=== PATIENT | male | born 1945 | race Caucasian/White ===

== ENCOUNTER 2017-10-21 10:51 | Inpatient (IN) | payer OTHER ==
[2017-10-21 16:02] LABS: ADD MAN DIFF? NO
[2017-10-21 16:07] LABS: BASOPHILS % 0.6 % (0.0-2.0); EOSINOPHILS # 0.1 10^3/ul (0.0-0.5); HEMATOCRIT 46.7 % (42.0-52.0); HEMOGLOBIN 15.6 g/dl (14.0-18.0); LYMPHOCYTES # 1.2 10^3/ul (0.8-2.9); LYMPHOCYTES % 16.7 % (15.0-51.0); MEAN CORPUSCULAR HEMOGLOBIN 31.1 pg (29.0-33.0); MEAN CORPUSCULAR HGB CONC 33.4 g/dl (32.0-37.0); MEAN PLATELET VOLUME 11.7 fl (7.4-10.4); MONOCYTE # 0.5 10^3/ul (0.3-0.9); MONOCYTES % 6.3 % (0.0-11.0); NEUTROPHIL # 5.4 10^3/ul (1.6-7.5); NEUTROPHILS % 75.1 % (39.0-77.0); PLATELET COUNT 174 10^3/UL (140-415); RED BLOOD COUNT 5.02 10^6/ul (4.70-6.10)
[2017-10-21 16:07] LABS: WHITE BLOOD COUNT 7.2 10^3/ul (4.8-10.8)
[2017-10-21] MEDS: ASPIRIN 325 MG TAB PO (16:15)
[2017-10-21 16:21] LABS: D-DIMER 405.34 ng/ml (<460)
[2017-10-21 16:22] LABS: ANION GAP 17 (8-16); BLOOD UREA NITROGEN 13 mg/dl (7-20); CALCIUM 9.5 mg/dl (8.4-10.2); CARBON DIOXIDE 25 mmol/L (21-31); CHLORIDE 104 mmol/L (97-110); CREATININE 0.82 mg/dl (0.61-1.24); GLUCOSE 95 mg/dl (70-220); POTASSIUM 4.2 mmol/L (3.5-5.1); SODIUM 142 mmol/L (135-144)
[2017-10-21] MEDS ORDERED: ONDANSETRON 4 MG INJ IV ×2 (17:00→17:30)
[2017-10-21] MEDS ORDERED: ACETAMINOPHEN 325 MG TAB PO ×2 (17:00→17:30)
[2017-10-21] MEDS ORDERED: MAGNESIUM HYDROXIDE 30ML CUP PO (17:30)
[2017-10-21] MEDS ORDERED: NITROGLYCERIN (SL) 0.4 MG TAB SL (17:30)
[2017-10-21] MEDS ORDERED: DOCUSATE SODIUM 100 MG CAP PO (17:30)
[2017-10-21] MEDS ORDERED: BISACODYL 10 MG SUPP PR (17:30)
[2017-10-21] MEDS ORDERED: NACL 0.9% 3 ML SYG IV (17:30)
[2017-10-21] MEDS ORDERED: ZOLPIDEM 5 MG TAB PO (17:30)
[2017-10-21] MEDS ORDERED: VERAPAMIL 5 MG INJ (17:32)
[2017-10-21] MEDS ORDERED: SOD CHLORIDE 0.9% 500 ML (17:32)
[2017-10-21] MEDS ORDERED: LIDOCAINE 1% (MDV) 20 ML INJ (17:32)
[2017-10-21] MEDS ORDERED: IODIXANOL LOCM 100 ML BTL (17:32)
[2017-10-21] MEDS ORDERED: MIDAZOLAM 1 MG/ML 2 ML INJ (17:32)
[2017-10-21] MEDS ORDERED: FENTAnyl 50 MCG/ML VIAL (17:32)
[2017-10-21] MEDS ORDERED: NITROGLYCERIN (IC) 100 MCG/ML INJ (17:33)
[2017-10-21] MEDS ORDERED: IOHEXOL 350MG/ML 50 ML BTL (17:33)
[2017-10-21] MEDS ORDERED: HEPARIN 1000 UNITS/ML 10 ML INJ IV (19:00)
[2017-10-21] MEDS: SOD CHLORIDE 0.9% 1,000 ML IV (19:13)
[2017-10-21] MEDS: CEFAZOLIN 2 GM/50 ML (PMX) 50 ML IVPB (20:00)
[2017-10-21 20:13] LABS: ADD MAN DIFF? NO
[2017-10-21 20:23] LABS: WHITE BLOOD COUNT 8.6 10^3/ul (4.8-10.8)
[2017-10-21 20:23] LABS: BASOPHILS % 0.5 % (0.0-2.0); EOSINOPHILS # 0.1 10^3/ul (0.0-0.5); EOSINOPHILS % 1.3 % (0.0-7.0); HEMATOCRIT 41.2 % (42.0-52.0); LYMPHOCYTES # 1.6 10^3/ul (0.8-2.9); LYMPHOCYTES % 18.8 % (15.0-51.0); MEAN CORPUSCULAR HEMOGLOBIN 30.8 pg (29.0-33.0); MEAN CORPUSCULAR VOLUME 90.5 fl (82.0-101.0); MEAN PLATELET VOLUME 11.1 fl (7.4-10.4); MONOCYTE # 0.5 10^3/ul (0.3-0.9); MONOCYTES % 6.3 % (0.0-11.0); NEUTROPHIL # 6.3 10^3/ul (1.6-7.5); NEUTROPHILS % 72.9 % (39.0-77.0); PLATELET COUNT 197 10^3/UL (140-415); RED BLOOD COUNT 4.55 10^6/ul (4.70-6.10); RED CELL DISTRIBUTION WIDTH 12.4 % (11.5-14.5)
[2017-10-21 20:36] LABS: INR 1.16; PT RATIO 1.2
[2017-10-21 20:41] LABS: PARTIAL THROMBOPLASTIN TIME 71.7 Sec (25.0-35.0)
[2017-10-21] MEDS ORDERED: ATORVASTATIN 40 MG TAB PO (21:00)
[2017-10-21] MEDS: ATORVASTATIN 80 MG TAB PO (21:15)
[2017-10-21] MEDS: FAMOTIDINE 20 MG TAB PO (21:15)
[2017-10-21] MEDS: METOPROLOL 25 MG TAB PO (21:15)
[2017-10-21 21:17] LABS: CREATINE KINASE 133 IU/L (23-200)
[2017-10-21] MEDS: HEPARIN 25000 UNITS/250 ML 250 ML IV (21:27)
[2017-10-21 21:31] LABS: CK INDEX 1.9
[2017-10-21 21:33] LABS: CK-MB 2.59 ng/ml (0.0-2.4)
[2017-10-22 05:55] LABS: ADD MAN DIFF? NO
[2017-10-22 06:00] LABS: WHITE BLOOD COUNT 6.6 10^3/ul (4.8-10.8)
[2017-10-22 06:00] LABS: BASOPHIL # 0.1 10^3/ul (0.0-0.1); BASOPHILS % 0.8 % (0.0-2.0); EOSINOPHILS # 0.2 10^3/ul (0.0-0.5); EOSINOPHILS % 2.9 % (0.0-7.0); HEMATOCRIT 38.1 % (42.0-52.0); LYMPHOCYTES # 1.5 10^3/ul (0.8-2.9); LYMPHOCYTES % 22.7 % (15.0-51.0); MEAN CORPUSCULAR HEMOGLOBIN 31.3 pg (29.0-33.0); MEAN CORPUSCULAR HGB CONC 34.1 g/dl (32.0-37.0); MEAN CORPUSCULAR VOLUME 91.8 fl (82.0-101.0); MEAN PLATELET VOLUME 10.2 fl (7.4-10.4); MONOCYTE # 0.5 10^3/ul (0.3-0.9); MONOCYTES % 8.1 % (0.0-11.0); NEUTROPHIL # 4.3 10^3/ul (1.6-7.5); NEUTROPHILS % 65.3 % (39.0-77.0); PLATELET COUNT 199 10^3/UL (140-415); RED BLOOD COUNT 4.15 10^6/ul (4.70-6.10); RED CELL DISTRIBUTION WIDTH 12.9 % (11.5-14.5)
[2017-10-22 06:19] LABS: PARTIAL THROMBOPLASTIN TIME 64.9 Sec (25.0-35.0)
[2017-10-22 06:32] LABS: ALANINE AMINOTRANSFERASE 32 IU/L (13-69); ALBUMIN 3.3 g/dl (3.3-4.9); ALBUMIN/GLOBULIN RATIO 0.94; ALKALINE PHOSPHATASE 85 IU/L (42-121); ANION GAP 9 (8-16); ASPARTATE AMINO TRANSFERASE 29 IU/L (15-46); BILIRUBIN,INDIRECT 0.4 mg/dl (0-1.1); BILIRUBIN,TOTAL 0.4 mg/dl (0.2-1.3); BLOOD UREA NITROGEN 12 mg/dl (7-20); CALCIUM 8.8 mg/dl (8.4-10.2); CARBON DIOXIDE 27 mmol/L (21-31); CHLORIDE 107 mmol/L (97-110); CHOL/HDL RATIO 4.6 RATIO; CHOLESTEROL 169 mg/dl (100-200); CREATININE 0.85 mg/dl (0.61-1.24); GLUCOSE 95 mg/dl (70-220); HDL CHOLESTEROL 36 mg/dl (31-75); LDL CHOLESTEROL,CALCULATED 114 mg/dl; POTASSIUM 4.1 mmol/L (3.5-5.1); SODIUM 139 mmol/L (135-144); TOTAL PROTEIN 6.8 g/dl (6.1-8.1); TRIGLYCERIDES 94 mg/dl (0-149)
[2017-10-22] MEDS: METOPROLOL 25 MG TAB PO ×3 (08:13→19:47)
[2017-10-22] MEDS: FAMOTIDINE 20 MG TAB PO ×3 (08:13→19:47)
[2017-10-22] MEDS: ASPIRIN 81 MG TAB PO ×2 (08:13→11:01)
[2017-10-22] MEDS ORDERED: HEPARIN 1000 UNITS/ML 10 ML INJ IV (12:30)
[2017-10-22] MEDS: HEPARIN 25000 UNITS/250 ML 250 ML IV (12:51)
[2017-10-22 13:19] LABS: INR 1.05; PROTIME 13.8 Sec (11.9-14.9); PT RATIO 1.1
[2017-10-22 13:20] LABS: PARTIAL THROMBOPLASTIN TIME 50.8 Sec (25.0-35.0)
[2017-10-22 19:17] LABS: PARTIAL THROMBOPLASTIN TIME 72.5 Sec (25.0-35.0)
[2017-10-22] MEDS: ATORVASTATIN 80 MG TAB PO (19:47)
[2017-10-23 01:18] LABS: PARTIAL THROMBOPLASTIN TIME 55.7 Sec (25.0-35.0)
[2017-10-23] MEDS: ASPIRIN 81 MG TAB PO (08:03)
[2017-10-23] MEDS: METOPROLOL 25 MG TAB PO ×2 (08:03→20:42)
[2017-10-23] MEDS: FAMOTIDINE 20 MG TAB PO ×3 (08:05→20:43)
[2017-10-23] MEDS ORDERED: MIDAZOLAM 5 ML ×3 (10:51→16:22)
[2017-10-23] MEDS ORDERED: ROCURONIUM 50 MG INJ (10:54)
[2017-10-23] MEDS ORDERED: LIDOCAINE 100 MG SYRINGE ×2 (10:54→11:01)
[2017-10-23] MEDS ORDERED: THROMBIN 5000 UNIT VIAL (10:54)
[2017-10-23] MEDS ORDERED: PROPOFOL 20 ML (10:54)
[2017-10-23] MEDS ORDERED: CA CHLORIDE 10% 10 ML SYRINGE ×2 (10:54→11:08)
[2017-10-23] MEDS ORDERED: GELATIN SIZE 100 SPONGE (10:54)
[2017-10-23] MEDS ORDERED: NA BICARBONATE 8.4% 50 ML SYG ×2 (10:54→11:11)
[2017-10-23] MEDS ORDERED: HEPARIN 1000 UNITS/ML 10 ML INJ ×2 (10:55→11:08)
[2017-10-23] MEDS ORDERED: PROPOFOL 100 ML (10:55)
[2017-10-23] MEDS ORDERED: NITROGLYCERIN 50 MG/D5W (PMX) 250 ML (10:57)
[2017-10-23] MEDS ORDERED: POTASSIUM CHLORIDE 40 MEQ INJ (11:01)
[2017-10-23] MEDS ORDERED: MAGNESIUM SULFATE (MG) 50% 10 ML INJ (11:02)
[2017-10-23] MEDS ORDERED: ALBUMIN HUMAN 5% 500 ML (11:07)
[2017-10-23] MEDS ORDERED: MANNITOL 20% 250 ML IV (11:09)
[2017-10-23] MEDS ORDERED: PHENYLephrine 10 MG INJ ×4 (11:10→14:36)
[2017-10-23] MEDS: MILRINONE LACTATE 2 MG in SOD CHLORIDE 0.9% 50 ML IV (12:00)
[2017-10-23] MEDS ORDERED: NORepinephrine 8MG/250 ML (PMX 250 ML IV (12:00)
[2017-10-23] MEDS ORDERED: EPINEPHrine 4 MG in DEXTROSE 5% 246 ML IV (12:00)
[2017-10-23] MEDS: INSULIN HUMAN REGULAR 100 UNIT in SOD CHLORIDE 0.9% 99 ML IV ×2 (12:00→23:14)
[2017-10-23] MEDS ORDERED: PHENYLephrine 20MG IN 250 ML 250 ML IV (12:00)
[2017-10-23] MEDS: ASPIRIN 600 MG SUPP PR (12:00)
[2017-10-23] MEDS: HEPARIN (10000 UNITS/ML) 10,000 UNIT, MILRINONE LACTATE 10 MG in SOD CHLORIDE 0.9% 1,00... SC (12:00)
[2017-10-23] MEDS: TRANEXAMIC ACID IRR (12:30)
[2017-10-23] MEDS ORDERED: LIDOCAINE 2% (SDV) 5 ML INJ (12:38)
[2017-10-23] MEDS ORDERED: CEFAZOLIN 1 GM INJ (13:29)
[2017-10-23] MEDS: PAPAVERINE 60 MG INJ (13:30)
[2017-10-23] MEDS: HEPARIN 1000 UNITS/ML 10 ML INJ (13:30)
[2017-10-23] MEDS ORDERED: NEOSTIGMINE 3 MG/3 ML SYRINGE (14:42)
[2017-10-23 14:50] LABS: IMMEDIATE SPIN CROSSMATCH 1 2
[2017-10-23] MEDS: VANCOMYCIN 1 GM INJ (15:12)
[2017-10-23] MEDS ORDERED: FUROSEMIDE 20 MG INJ (15:20)
[2017-10-23] MEDS ORDERED: PROTAMINE 250 MG INJ ×2 (16:18→16:45)
[2017-10-23] MEDS ORDERED: morphine 10 MG INJ ×2 (16:24→17:10)
[2017-10-23] MEDS: ACCU-CHEK XX ×8 (17:00→23:58)
[2017-10-23] MEDS ORDERED: DOPamine-D5W 1.6 MG/ML 250 ML IV (17:00)
[2017-10-23] MEDS ORDERED: MAGNESIUM SULFATE 1 GM/D5W 100 ML IVPB (17:00)
[2017-10-23] MEDS ORDERED: DEXTROSE 50% 50 ML SYRINGE IV ×4 (17:00→19:00)
[2017-10-23] MEDS ORDERED: ACETAMINOPHEN 325 MG TAB PO (17:00)
[2017-10-23] MEDS ORDERED: ONDANSETRON 4 MG INJ IV (17:00)
[2017-10-23] MEDS: hydrALAzine 20 MG INJ IV (17:45)
[2017-10-23 17:54] LABS: ADD MAN DIFF? NO
[2017-10-23 18:13] LABS: INR 1.44; PROTIME 17.8 Sec (11.9-14.9); PT RATIO 1.4
[2017-10-23 18:27] LABS: ANION GAP 21 (8-16); BLOOD UREA NITROGEN 13 mg/dl (7-20); CALCIUM 11.4 mg/dl (8.4-10.2); CARBON DIOXIDE 24 mmol/L (21-31); CHLORIDE 104 mmol/L (97-110); CREATININE 0.85 mg/dl (0.61-1.24); GLUCOSE 136 mg/dl (70-220); POTASSIUM 3.9 mmol/L (3.5-5.1); SODIUM 145 mmol/L (135-144)
[2017-10-23] MEDS: POTASSIUM CHLORIDE 40 MEQ, CALCIUM CHLORIDE 10% 1 GM in DEXTROSE 5%-0.225% NACL 1,000 ML IV (18:32)
[2017-10-23] MEDS ORDERED: ACCU-CHEK XX (19:00)
[2017-10-23] MEDS ORDERED: INSULIN HUMAN REGULAR 100 UNIT in SOD CHLORIDE 0.9% 99 ML IV (19:00)
[2017-10-23 19:16] LABS: AADO2 Arterial 152.7 mmHg (7.0-24.0); Arterial Base Excess -3.4 mmol/L (-3.0-3); Arterial Blood Gas Oxygen Sat 98.3 mmHG (95.0-100.0); Arterial COHb 0.3 % (0.0-3.0); Arterial Fraction of Oxyhgb 97.6 % (93.0-99.0); Arterial HCO3 22.5 mmol/L (22.0-26.0); Arterial MetHb 0.4 % (0.0-1.5); Arterial Total Hemglobin 11.8 g/dl (12.0-18.0); Arterial pCO2 43.9 mmhg (35-45); MODE VENT - AC; Site A-Line
[2017-10-23 19:17] LABS: MODE VENT - AC; MetHgb Venous 0.6 %; Sample Type BLMV; Site VENOUS LINE; Venous COHb 0.3 %; Venous Fraction OxyHgb 86.6 %; Venous Oxygen Sat 87.4 mmHG (55.0-75.0); Venous Total Hemglobin 11.7 g/dl
[2017-10-23 19:23] LABS: WHITE BLOOD COUNT 14.8 10^3/ul (4.8-10.8)
[2017-10-23 19:23] LABS: HEMATOCRIT 30.6 % (42.0-52.0); HEMOGLOBIN 10.5 g/dl (14.0-18.0); MEAN CORPUSCULAR HEMOGLOBIN 31.6 pg (29.0-33.0); MEAN CORPUSCULAR HGB CONC 34.3 g/dl (32.0-37.0); MEAN CORPUSCULAR VOLUME 92.2 fl (82.0-101.0); MEAN PLATELET VOLUME 10.2 fl (7.4-10.4); PLATELET COUNT 130 10^3/UL (140-415); RED BLOOD COUNT 3.32 10^6/ul (4.70-6.10); RED CELL DISTRIBUTION WIDTH 12.6 % (11.5-14.5)
[2017-10-23] MEDS ORDERED: NITROPRUSSIDE 50 MG in DEXTROSE 5% 248 ML IV (19:30)
[2017-10-23] MEDS: NITROGLYCERIN 50 MG/D5W (PMX) 250 ML IV ×2 (19:44→22:47)
[2017-10-23] MEDS: POTASSIUM CHLORIDE 50 ML IVPB ×2 (19:52→20:46)
[2017-10-23 19:56] LABS: BAND NEUTROPHILS #M 1.1 10^3/ul (0.0-0.6); BAND NEUTROPHILS % (M) 8 % (0-4); LYMPHOCYTES # 0.6 10^3/ul (0.8-2.9); LYMPHOCYTES #M 0.5 10^3/ul (0.8-2.9); LYMPHOCYTES % (M) 4 % (15-51); MONOCYTE # 0.6 10^3/ul (0.3-0.9); MONOCYTE #M 0.5 10^3/ul (0.3-0.9); MONOCYTES % (M) 4 % (0-11); SEG NEUT #M 12.6 10^3/ul (1.7-7.5); SEGMENTED NEUTROPHILS (M) % 84 % (39-77)
[2017-10-23 19:57] LABS: ANISOCYTOSIS 1+ (0-0)
[2017-10-23 19:58] LABS: PLATELET ESTIMATE NORMAL
[2017-10-23] MEDS: HYDROmorphONE 0.5 MG/0.5 ML SYG IV ×2 (20:02→22:43)
[2017-10-23 20:06] LABS: PATH REVIEW? NO; POSITIVE DIFF NO
[2017-10-23] MEDS: FAMOTIDINE 20 MG INJ IV (20:41)
[2017-10-23] MEDS: ATORVASTATIN 80 MG TAB PO (20:42)
[2017-10-23 23:15] LABS: AADO2 Arterial 100.3 mmHg (7.0-24.0); Arterial Blood Gas Oxygen Sat 97.9 mmHG (95.0-100.0); Arterial COHb 0.3 % (0.0-3.0); Arterial Fraction of Oxyhgb 97.2 % (93.0-99.0); Arterial HCO3 24.4 mmol/L (22.0-26.0); Arterial MetHb 0.4 % (0.0-1.5); Arterial Total Hemglobin 11.4 g/dl (12.0-18.0); Arterial pCO2 43.3 mmhg (35-45); Blood Gas PS 8; MODE VENT - CPAP; Site A-Line
[2017-10-23] MEDS: CEFAZOLIN 1 GM/50 ML (PMX) 50 ML IVPB (23:54)
[2017-10-24] MEDS: ACCU-CHEK XX ×11 (01:00→11:02)
[2017-10-24] MEDS: HYDROmorphONE 0.5 MG/0.5 ML SYG IV (04:15)
[2017-10-24 05:16] LABS: AADO2 Arterial 24.9 mmHg (7.0-24.0); Arterial Base Excess -2.1 mmol/L (-3.0-3); Arterial Blood Gas Oxygen Sat 98.4 mmHG (95.0-100.0); Arterial COHb 0.1 % (0.0-3.0); Arterial Fraction of Oxyhgb 97.9 % (93.0-99.0); Arterial HCO3 23.4 mmol/L (22.0-26.0); Arterial MetHb 0.4 % (0.0-1.5); Arterial Total Hemglobin 12.2 g/dl (12.0-18.0); Arterial pCO2 42.7 mmhg (35-45); MODE NASAL CANNULA; Site A-Line
[2017-10-24 05:42] LABS: ADD MAN DIFF? NO
[2017-10-24 05:58] LABS: ABNORMAL IP MESSAGE 1; BASOPHILS % 0.1 % (0.0-2.0); HEMATOCRIT 31.2 % (42.0-52.0); HEMOGLOBIN 10.4 g/dl (14.0-18.0); LYMPHOCYTES # 0.6 10^3/ul (0.8-2.9); LYMPHOCYTES % 4.9 % (15.0-51.0); MEAN CORPUSCULAR HGB CONC 33.3 g/dl (32.0-37.0); MEAN CORPUSCULAR VOLUME 92.9 fl (82.0-101.0); MEAN PLATELET VOLUME 11.5 fl (7.4-10.4); MONOCYTE # 0.8 10^3/ul (0.3-0.9); MONOCYTES % 6.2 % (0.0-11.0); NEUTROPHIL # 11.1 10^3/ul (1.6-7.5); NEUTROPHILS % 88.6 % (39.0-77.0); POSITIVE DIFF @See below; RED BLOOD COUNT 3.36 10^6/ul (4.70-6.10); RED CELL DISTRIBUTION WIDTH 13.3 % (11.5-14.5)
[2017-10-24 05:58] LABS: WHITE BLOOD COUNT 12.6 10^3/ul (4.8-10.8)
[2017-10-24] MEDS ORDERED: CEFAZOLIN 1 GM/50 ML (PMX) 50 ML IVPB (06:00)
[2017-10-24 06:06] LABS: INR 1.26; PT RATIO 1.3
[2017-10-24 06:20] LABS: MAGNESIUM 2.4 mg/dl (1.7-2.5)
[2017-10-24 06:43] LABS: ALANINE AMINOTRANSFERASE 30 IU/L (13-69); ALBUMIN 4.4 g/dl (3.3-4.9); ALKALINE PHOSPHATASE 43 IU/L (42-121); ANION GAP 19 (8-16); ASPARTATE AMINO TRANSFERASE 48 IU/L (15-46); BILIRUBIN,INDIRECT 0.6 mg/dl (0-1.1); BILIRUBIN,TOTAL 0.6 mg/dl (0.2-1.3); BLOOD UREA NITROGEN 14 mg/dl (7-20); CALCIUM 10.1 mg/dl (8.4-10.2); CARBON DIOXIDE 23 mmol/L (21-31); CHLORIDE 107 mmol/L (97-110); CREATININE 0.84 mg/dl (0.61-1.24); GLUCOSE 110 mg/dl (70-220); POTASSIUM 4.7 mmol/L (3.5-5.1); SODIUM 144 mmol/L (135-144); TOTAL PROTEIN 6.4 g/dl (6.1-8.1)
[2017-10-24] MEDS: FAMOTIDINE 20 MG INJ IV (08:00)
[2017-10-24 08:42] LABS: PLATELET COUNT 72 10^3/UL (140-415)
[2017-10-24] MEDS: ASPIRIN 81 MG TAB PO ×2 (09:00→09:06)
[2017-10-24] MEDS: FAMOTIDINE 20 MG TAB PO ×3 (09:00→20:37)
[2017-10-24] MEDS: ENOXAPARIN 40 MG/0.4 ML SYG SC (09:04)
[2017-10-24] MEDS: OXYCODONE/ACETAMINOPHEN (5/325) TAB PO ×2 (09:05→22:54)
[2017-10-24] MEDS: METOPROLOL 25 MG TAB PO ×2 (09:05→20:37)
[2017-10-24 09:07] LABS: ANISOCYTOSIS 1+ (0-0); BAND NEUTROPHILS #M 1.5 10^3/ul (0.0-0.6); BAND NEUTROPHILS % (M) 12 % (0-4); GIANT THROMBO% (M) 1 % (0-0); LYMPHOCYTES #M 1.1 10^3/ul (0.8-2.9); LYMPHOCYTES % (M) 9 % (15-51); MICROCYTOSIS 1+ (0-0); MONOCYTE #M 0.1 10^3/ul (0.3-0.9); MONOCYTES % (M) 1 % (0-11); PLATELET ESTIMATE SIG DECREASED; POIKILOCYTOSIS 2+ (0-0); POLYCHROMASIA 3+ (0-0); REACTIVE LYMPHOCYTES #M 0.2 10^3/ul (0.0-0.0); REACTIVE LYMPHOCYTES% (M) 2 % (0-0); SEG NEUT #M 9.8 10^3/ul (1.7-7.5); SEGMENTED NEUTROPHILS (M) % 76 % (39-77); SMUDGE%M 3 % (0-0)
[2017-10-24] MEDS: CEFAZOLIN 1 GM/50 ML (PMX) 50 ML IVPB (09:09)
[2017-10-24] MEDS: POTASSIUM CHLORIDE 40 MEQ, CALCIUM CHLORIDE 10% 1 GM in DEXTROSE 5%-0.225% NACL 1,000 ML IV (10:05)
[2017-10-24] MEDS: morphine 2 MG INJ IV ×2 (10:35→20:10)
[2017-10-24] MEDS ORDERED: GLUCAGON 1 MG INJ IM (13:30)
[2017-10-24] MEDS ORDERED: DEXTROSE 50% 50 ML SYRINGE IV ×2 (13:30)
[2017-10-24] MEDS ORDERED: GLUCOSE GEL 15 GRAM TUBE BUCCAL (13:30)
[2017-10-24] MEDS ORDERED: GLUCOSE GEL 15 GRAM TUBE PO ×2 (13:30)
[2017-10-24] MEDS: INSULIN ASPART [NOVOLOG] 3 ML PEN SC ×2 (17:35→20:37)
[2017-10-24] MEDS: ALBUMIN HUMAN 5% 250 ML IV (17:56)
[2017-10-24] MEDS: ATORVASTATIN 80 MG TAB PO (20:37)
[2017-10-25] MEDS: ACCU-CHEK XX ×2 (01:31→23:28)
[2017-10-25] MEDS: morphine 2 MG INJ IV (01:59)
[2017-10-25] MEDS: POTASSIUM CHLORIDE 40 MEQ, CALCIUM CHLORIDE 10% 1 GM in DEXTROSE 5%-0.225% NACL 1,000 ML IV (03:15)
[2017-10-25 06:13] LABS: ADD MAN DIFF? NO
[2017-10-25 06:20] LABS: WHITE BLOOD COUNT 12.7 10^3/ul (4.8-10.8)
[2017-10-25 06:20] LABS: ABNORMAL IP MESSAGE 1; BASOPHILS % 0.2 % (0.0-2.0); EOSINOPHILS % 0.2 % (0.0-7.0); HEMATOCRIT 32.4 % (42.0-52.0); HEMOGLOBIN 10.9 g/dl (14.0-18.0); LYMPHOCYTES # 1.2 10^3/ul (0.8-2.9); LYMPHOCYTES % 9.1 % (15.0-51.0); MEAN CORPUSCULAR HEMOGLOBIN 31.7 pg (29.0-33.0); MEAN CORPUSCULAR HGB CONC 33.6 g/dl (32.0-37.0); MEAN CORPUSCULAR VOLUME 94.2 fl (82.0-101.0); MEAN PLATELET VOLUME 11.2 fl (7.4-10.4); MONOCYTES % 8.2 % (0.0-11.0); NEUTROPHIL # 10.4 10^3/ul (1.6-7.5); NEUTROPHILS % 82.1 % (39.0-77.0); NUCLEATED RED BLOOD CELLS% 0.2 /100WBC (0.0-0.0); PLATELET COUNT 78 10^3/UL (140-415); POSITIVE DIFF @See below; RED BLOOD COUNT 3.44 10^6/ul (4.70-6.10); RED CELL DISTRIBUTION WIDTH 13.3 % (11.5-14.5)
[2017-10-25 06:52] LABS: ALANINE AMINOTRANSFERASE 31 IU/L (13-69); ALBUMIN 3.9 g/dl (3.3-4.9); ALBUMIN/GLOBULIN RATIO 1.56; ALKALINE PHOSPHATASE 60 IU/L (42-121); ANION GAP 17 (8-16); ASPARTATE AMINO TRANSFERASE 42 IU/L (15-46); BILIRUBIN,INDIRECT 0.7 mg/dl (0-1.1); BILIRUBIN,TOTAL 0.7 mg/dl (0.2-1.3); BLOOD UREA NITROGEN 18 mg/dl (7-20); CALCIUM 9.7 mg/dl (8.4-10.2); CARBON DIOXIDE 25 mmol/L (21-31); CHLORIDE 104 mmol/L (97-110); CREATININE 0.82 mg/dl (0.61-1.24); GLUCOSE 102 mg/dl (70-220); POTASSIUM 4.6 mmol/L (3.5-5.1); SODIUM 141 mmol/L (135-144); TOTAL PROTEIN 6.4 g/dl (6.1-8.1)
[2017-10-25 06:53] LABS: PHOSPHORUS 2.9 mg/dl (2.5-4.9)
[2017-10-25] MEDS: INSULIN ASPART [NOVOLOG] 3 ML PEN SC ×4 (07:35→21:00)
[2017-10-25] MEDS: METOPROLOL 25 MG TAB PO ×2 (09:21→20:07)
[2017-10-25] MEDS: FAMOTIDINE 20 MG TAB PO ×2 (09:21→20:07)
[2017-10-25] MEDS: ASPIRIN 81 MG TAB PO (09:21)
[2017-10-25] MEDS: ENOXAPARIN 40 MG/0.4 ML SYG SC (09:23)
[2017-10-25] MEDS: FUROSEMIDE 20 MG INJ IV (12:16)
[2017-10-25] MEDS ORDERED: morphine LIQ (10 MG/5 ML) CUP PO (16:00)
[2017-10-25] MEDS: ATORVASTATIN 80 MG TAB PO (20:07)
[2017-10-26] MEDS: FUROSEMIDE 20 MG TAB PO (06:00)
[2017-10-26 06:40] LABS: ADD MAN DIFF? NO
[2017-10-26 06:46] LABS: BASOPHILS % 0.2 % (0.0-2.0); EOSINOPHILS % 0.3 % (0.0-7.0); HEMATOCRIT 33.9 % (42.0-52.0); HEMOGLOBIN 11.7 g/dl (14.0-18.0); LYMPHOCYTES # 1.4 10^3/ul (0.8-2.9); LYMPHOCYTES % 11.1 % (15.0-51.0); MEAN CORPUSCULAR HEMOGLOBIN 31.5 pg (29.0-33.0); MEAN CORPUSCULAR HGB CONC 34.5 g/dl (32.0-37.0); MEAN CORPUSCULAR VOLUME 91.4 fl (82.0-101.0); MEAN PLATELET VOLUME 11.5 fl (7.4-10.4); MONOCYTE # 1.1 10^3/ul (0.3-0.9); MONOCYTES % 9.2 % (0.0-11.0); NEUTROPHIL # 9.5 10^3/ul (1.6-7.5); NEUTROPHILS % 78.7 % (39.0-77.0); POSITIVE DIFF @See below; RED BLOOD COUNT 3.71 10^6/ul (4.70-6.10); RED CELL DISTRIBUTION WIDTH 12.6 % (11.5-14.5)
[2017-10-26 06:46] LABS: WHITE BLOOD COUNT 12.1 10^3/ul (4.8-10.8)
[2017-10-26 07:01] LABS: ANION GAP 14 (8-16); BLOOD UREA NITROGEN 20 mg/dl (7-20); CALCIUM 9.2 mg/dl (8.4-10.2); CARBON DIOXIDE 26 mmol/L (21-31); CHLORIDE 102 mmol/L (97-110); CREATININE 0.85 mg/dl (0.61-1.24); GLUCOSE 108 mg/dl (70-220); POTASSIUM 3.5 mmol/L (3.5-5.1); SODIUM 138 mmol/L (135-144)
[2017-10-26 07:03] LABS: PHOSPHORUS 2.1 mg/dl (2.5-4.9)
[2017-10-26 07:05] LABS: PLATELET COUNT 116 10^3/UL (140-415)
[2017-10-26] MEDS: FAMOTIDINE 20 MG TAB PO ×2 (08:16→21:01)
[2017-10-26] MEDS: METOPROLOL 25 MG TAB PO ×2 (08:16→21:02)
[2017-10-26] MEDS: ASPIRIN 81 MG TAB PO (08:17)
[2017-10-26] MEDS: INSULIN ASPART [NOVOLOG] 3 ML PEN SC ×4 (08:25→21:00)
[2017-10-26] MEDS: ENOXAPARIN 40 MG/0.4 ML SYG SC (08:25)
[2017-10-26] MEDS: POTASSIUM PHOSPHATE 30 MM in SOD CHLORIDE 0.9% 250 ML IVPB (11:25)
[2017-10-26] MEDS: ATORVASTATIN 80 MG TAB PO (21:01)
[2017-10-27] MEDS: ACCU-CHEK XX (02:00)
[2017-10-27] MEDS: FUROSEMIDE 20 MG TAB PO (06:45)
[2017-10-27 07:08] LABS: ADD MAN DIFF? NO
[2017-10-27 07:11] LABS: WHITE BLOOD COUNT 9.3 10^3/ul (4.8-10.8)
[2017-10-27 07:11] LABS: BASOPHILS % 0.2 % (0.0-2.0); EOSINOPHILS # 0.1 10^3/ul (0.0-0.5); EOSINOPHILS % 0.8 % (0.0-7.0); HEMATOCRIT 34.9 % (42.0-52.0); HEMOGLOBIN 11.8 g/dl (14.0-18.0); LYMPHOCYTES # 1.1 10^3/ul (0.8-2.9); LYMPHOCYTES % 11.4 % (15.0-51.0); MEAN CORPUSCULAR HEMOGLOBIN 31.1 pg (29.0-33.0); MEAN CORPUSCULAR HGB CONC 33.8 g/dl (32.0-37.0); MEAN CORPUSCULAR VOLUME 91.8 fl (82.0-101.0); MEAN PLATELET VOLUME 12.2 fl (7.4-10.4); MONOCYTE # 0.9 10^3/ul (0.3-0.9); NEUTROPHIL # 7.2 10^3/ul (1.6-7.5); NEUTROPHILS % 77.4 % (39.0-77.0); PLATELET COUNT 124 10^3/UL (140-415); POSITIVE DIFF @See below; RED CELL DISTRIBUTION WIDTH 12.7 % (11.5-14.5)
[2017-10-27 07:36] LABS: ANION GAP 14 (8-16); BLOOD UREA NITROGEN 17 mg/dl (7-20); CALCIUM 8.7 mg/dl (8.4-10.2); CARBON DIOXIDE 26 mmol/L (21-31); CHLORIDE 103 mmol/L (97-110); CREATININE 0.82 mg/dl (0.61-1.24); GLUCOSE 94 mg/dl (70-220); SODIUM 139 mmol/L (135-144)
[2017-10-27] MEDS: INSULIN ASPART [NOVOLOG] 3 ML PEN SC ×4 (07:55→20:13)
[2017-10-27 08:17] LABS: PHOSPHORUS 2.8 mg/dl (2.5-4.9)
[2017-10-27 08:17] LABS: MAGNESIUM 2.1 mg/dl (1.7-2.5)
[2017-10-27] MEDS: FAMOTIDINE 20 MG TAB PO ×2 (08:34→20:12)
[2017-10-27] MEDS: METOPROLOL 25 MG TAB PO ×2 (08:35→20:13)
[2017-10-27] MEDS: ASPIRIN 81 MG TAB PO (08:35)
[2017-10-27] MEDS: ENOXAPARIN 40 MG/0.4 ML SYG SC (08:41)
[2017-10-27] MEDS: FUROSEMIDE 20 MG INJ IV (16:16)
[2017-10-27] MEDS: ATORVASTATIN 80 MG TAB PO (20:12)
[2017-10-28] MEDS: ACCU-CHEK XX (01:28)
[2017-10-28] MEDS: FUROSEMIDE 20 MG TAB PO (06:20)
[2017-10-28 06:48] LABS: PHOSPHORUS 2.8 mg/dl (2.5-4.9)
[2017-10-28 06:48] LABS: ANION GAP 13 (8-16); BLOOD UREA NITROGEN 18 mg/dl (7-20); CALCIUM 8.7 mg/dl (8.4-10.2); CARBON DIOXIDE 26 mmol/L (21-31); CHLORIDE 105 mmol/L (97-110); CREATININE 0.77 mg/dl (0.61-1.24); GLUCOSE 104 mg/dl (70-220); MAGNESIUM 2.1 mg/dl (1.7-2.5); POTASSIUM 3.3 mmol/L (3.5-5.1); SODIUM 141 mmol/L (135-144)
[2017-10-28] MEDS: INSULIN ASPART [NOVOLOG] 3 ML PEN SC ×2 (07:55→11:50)
[2017-10-28] MEDS: ASPIRIN 81 MG TAB PO (08:49)
[2017-10-28] MEDS: FAMOTIDINE 20 MG TAB PO (08:50)
[2017-10-28] MEDS: METOPROLOL 25 MG TAB PO (08:50)
[2017-10-28] MEDS: ENOXAPARIN 40 MG/0.4 ML SYG SC (08:54)
[2017-10-28] MEDS: POTASSIUM CHLORIDE (SR) 20 MEQ TAB PO (09:15)
== END 2017-10-28 15:40 | DRG 234 ==
LOC: E/R 10:51 → TEL 10-25 22:36 → REC 17:15 → ICU 19:10
PROC: 4A023N8 Measurement of Cardiac Sampling and Pressure, Bilateral, Percutaneous Approach (ICD-10-PCS; 2017-10-21 17:00)
PROC: B211YZZ Fluoroscopy of Multiple Coronary Arteries using Other Contrast (ICD-10-PCS; 2017-10-21 17:00)
PROC: B215YZZ Fluoroscopy of Left Heart using Other Contrast (ICD-10-PCS; 2017-10-21 17:00)
PROC: 021309W Bypass Coronary Artery, Four or More Arteries from Aorta with Autologous Venous Tissue, Open Approach (ICD-10-PCS; principal; 2017-10-21 17:39)
PROC: 02100A9 Bypass Coronary Artery, One Artery from Left Internal Mammary with Autologous Arterial Tissue, Open Approach (ICD-10-PCS; 2017-10-21 17:39)
PROC: 06BP4ZZ Excision of Right Saphenous Vein, Percutaneous Endoscopic Approach (ICD-10-PCS; 2017-10-21 17:39)
PROC: 5A1221Z Performance of Cardiac Output, Continuous (ICD-10-PCS; 2017-10-21 17:39)
DX: I21.4 Non-ST elevation (NSTEMI) myocardial infarction (principal); I47.2 Ventricular tachycardia; J95.811 Postprocedural pneumothorax; I10 Essential (primary) hypertension; I25.110 Atherosclerotic heart disease of native coronary artery with unstable angina pectoris; E78.5 Hyperlipidemia, unspecified
CPT/HCPCS: 36415; 36430; 36600; 71045; 80048; 80053; 80061; 82550; 82553; 82803; 82962; 83735; 84100; 84484; 85025; 85378; 85610; 85730; 86850; 86900; 86901; 86920; 87081; 93005; 93306; 93458; 93880; 94002; 94770; 97110; 97116; 97163; 97530; 99285-25; J1940